=== PATIENT | female | born 1985 | race Caucasian/White ===

== ENCOUNTER 2018-01-09 05:46 | Inpatient (IN) | payer OTHER, BC ==
[2017-12-22 12:01] VITALS: BMI 42.0
--- NOTE | 2017-12-22 12:34 | PAT Medication Instructions ---
Service Date Dec 22, 2017. Current Home Medication List Ibuprofen (Motrin), 800 MG PO TIDM PRN for Pain Medication Instructions For Your Scheduled Surgery - Hold the following medications 7 days prior to surgery per your surgeon's instructions: Ibuprofen (Motrin), 800 MG PO TIDM PRN for Pain If you have any questions please call us at [phone] or [phone] or [phone]
[2017-12-22 13:15] LABS: BASO % 0.2 %; BASO ABS # 0.02 K/uL (0-0.2); EOS % 1.1 %; EOS ABS # 0.09 K/uL (0-0.5); HEMATOCRIT 38.4 % (37-47); HEMOGLOBIN 13.5 g/dL (12.0-16.0); IG# 0.02 K/uL (0.00-0.02); LYMPH % 33.7 %; LYMPH ABS # 2.71 K/uL (1.2-3.4); MEAN CELL VOLUME 91.4 fL (80-100); MEAN CORPUSCULAR HEMOGLOBIN 32.1 pg (25-34); MEAN CORPUSCULAR HGB CONC 35.2 g/dl (32-36); MEAN PLATELET VOLUME 9.8 fL (7.4-10.4); MONO % 5.1 %; MONO ABS # 0.41 K/uL (0.11-0.59); NEUT % 59.7 %; NEUT ABS # 4.79 K/uL (1.4-6.5); PLATELET COUNT 315 K/uL (130-400); RED CELL DISTRIBUTION WIDTH CV 12.2 % (11.5-14.5); RED CELL DISTRIBUTION WIDTH SD 40.6 fL (36.4-46.3); WHITE BLOOD COUNT 8.04 K/uL (4.8-10.8)
--- NOTE | 2017-12-22 13:20 | DIAGNOSTIC IMAGING REPORT ---
CHEST 2 VIEWS ROUTINE CLINICAL HISTORY: Preoperative chest COMPARISON STUDY: No previous studies for comparison. FINDINGS: The cardiac and mediastinal contours are normal. There is no evidence of focal pulmonary consolidation. There is no evidence of failure. No pleural effusions are visualized.[ IMPRESSION: No active disease in the chest. Electronically signed by: Cosmo Gutierrez M.D. 12/22/2017 1:19 PM Dictated Date/Time: 12/22/2017 1:18 PM
[2018-01-09] VITALS (17 sets, daily range): BP systolic 114–145; BP diastolic 69–91; PULSE 78–118; TEMP 36.4–37.2; O2SAT 95–98; Ht 157.5 cm; Wt 104.8 kg
[~2018-01-09] VITALS: Ht 157.5 cm; Wt 104.8 kg
[~2018-01-09 05:46] MED LIST: IBUP-1428 PO
[2018-01-09] MEDS ORDERED: CLINDAMYCIN PHOS 150 MG/ML 2 ML VIAL IV SCH (06:00)
[2018-01-09] MEDS ORDERED: LACTATED RINGER'S 1000ML 1,000 ML IV SCH (06:00)
[2018-01-09] MEDS ORDERED: FENTANYL CITRATE INJ 50 MCG/1 ML 2 ML VIAL ONE ×2 (06:39→07:59)
[2018-01-09] MEDS ORDERED: MIDAZOLAM HCL 1 MG/ML 2ML VIAL ONE (06:39)
[2018-01-09] MEDS ORDERED: SODIUM CHLORIDE 0.9% PF 50 ML VIAL ONE (07:02)
[2018-01-09] MEDS ORDERED: BACITRACIN 50000 UNIT VIAL ONE (07:02)
--- NOTE | 2018-01-09 07:24 | History & Physical Bridge Note ---
H&P Re-Evaluation Bridge Note: I have examined the patient, reviewed the History & Physical and in the interval since the performance of the History & Physical I have noted the following changes of clinical significance: No changes noted
--- NOTE | 2018-01-09 07:25 | History and Physical ---
History & Physical Date Jan 09, 2018. Chief Complaint Neck and arm pain History of Present Illness The patient is a 32 year old female with complaints of neck and arm pain Additional History Hepatic Disease: No Endocrine Disorder: No Kidney Disease: No Hypertension: No Heart Disease: No Bleeding Tendencies: No Infectious Diseases: No Allergies Coded Allergies: Doxycycline (Verified Allergy, Unknown, INCREASED HEART RATE, 12/22/17) Meloxicam (Verified Allergy, Unknown, HIVES, 12/22/17) Uncoded Allergies: PENICILLIN (Allergy, Unknown, HIVES, 12/22/17) Home Medications Scheduled PRN Ibuprofen (Motrin), 800 MG PO TIDM PRN for Pain Physical Examination Skin: warm/dry, no rash Eyes: normal inspection, EOMI, sclerae normal ENT: normal ENT inspection, pharynx normal Head: normocephalic, atraumatic Neck: supple, no adenopathy, trachea midline Respiratory/Chest: lungs clear, normal breath sounds, no respiratory distress Cardiovascular: regular rate, rhythm, no edema, no murmur Abdomen / GI: normal bowel sounds, non tender Back: normal inspection Extremities: normal inspection, normal range of motion Neurologic/Psych: no motor/sensory deficits, alert, normal reflexes, oriented x 3 Diagnosis Cervical spinal stenosis Plan of Treatment ACDF C5-7
[2018-01-09] MEDS ORDERED: HYDROmorphone INJ 2 MG/ML SYR/VIAL ONE ×2 (07:59→08:56)
[2018-01-09] MEDS ORDERED: SCOPOLAMINE 1.5 MG TDSY TD ONE (08:11)
[2018-01-09] MEDS ORDERED: LIDOCAINE HCL 2% 2 ML VIAL (20MG/ML) ONE (08:23)
[2018-01-09] MEDS ORDERED: ONDANSETRON INJ 2 MG/ML 2 ML VIAL ONE ×2 (08:23→08:59)
[2018-01-09] MEDS ORDERED: DEXAMETHASONE SOD INJ 4 MG/ML VIAL ONE (08:23)
[2018-01-09] MEDS ORDERED: METOCLOPRAMIDE HCL INJ 5 MG/ML 2 ML VIAL ONE ×2 (08:23→08:59)
[2018-01-09] MEDS ORDERED: PROPOFOL IV EMULSION 10 MG/ML 20 ML VIAL IV ONE (08:23)
[2018-01-09] MEDS ORDERED: RANITIDINE HCL 25 MG/ML INJ ONE ×2 (08:23→08:59)
[2018-01-09] MEDS ORDERED: EpHEDrine SULFATE INJ 50 MG/ML AMP IV PRN (08:30)
[2018-01-09] MEDS ORDERED: ATROPINE SULFATE 0.1 MG/ML 5ML SYR IV PRN (08:30)
[2018-01-09] MEDS ORDERED: HYDROmorphone INJ 0.5 MG/0.5 ML SYR IV PRN ×2 (08:30→09:15)
[2018-01-09] MEDS ORDERED: SCOPOLAMINE 1.5 MG TDSY TD SCH (08:30)
[2018-01-09] MEDS ORDERED: PROMETHAZINE HCL INJ 12.5 MG in SODIUM CHLORIDE 0.9% 50ML 50 ML IV PRN (08:30)
[2018-01-09] MEDS ORDERED: ONDANSETRON INJ 2 MG/ML 2 ML VIAL IV PRN ×2 (08:30→09:15)
[2018-01-09] MEDS ORDERED: FLOSEAL HEMOSTATIC MATRIX 10ML TOP ONE (08:52)
[2018-01-09] MEDS ORDERED: NEOSTIGMINE METHYLSULFATE 1 MG/ML 10ML VIAL ONE (08:59)
[2018-01-09] MEDS ORDERED: GLYCOPYRROLATE INJ 0.2 MG/ML VIAL ONE (08:59)
[2018-01-09] MEDS ORDERED: ESMOLOL HCL 10 MG/ML 10 ML VIAL ONE (08:59)
[2018-01-09] MEDS ORDERED: METOPROLOL TARTRATE 1 MG/ML VIAL ONE (09:01)
--- NOTE | 2018-01-09 09:03 | [facility] Operative Report ---
Operative Report Operative Date Jan 09, 2018. Pre-Operative Diagnosis Cervical Spinal Stenosis Post-Operative Diagnosis Cervical Spinal Stenosis Procedure(s) Performed 1. Anterior cervical discectomy bilateral foraminotomies C5-6 C6-7. #2 anterior cervical arthrodesis C5-6 C6-7. #3 placement of cortical allograft 8 mm in height filled with DBM at C5-6 and C6-7. #4 application of felt complete and screws C5-6 C6-[address] Surgeon Dr. Pedraza Plate Painter Surgeon(s) Ann Perez PA-C Estimated Blood Loss 10ml Findings Herniated disc pulposus Specimens None per surgeon Anesthesia Type General Description of Procedure Patient was met with preoperatively case discussed all questions addressed. After informed consent obtained patient was taken to the operative suite underwent intubation and placed in supine position on the Joshua table with head Irving branham. All bony prominences were well-padded eyes inspected to ensure no external pressure placed upon them. This point the anterior cervical spine was prepped and draped in normal sterile fashion. The assistance of fluoroscopy verified the C6 vertebral body and transverse incision was placed along the right anterior aspect of the cervical spine overlying this region. Sharp dissection with the assistance of bipolar electrocautery was performed down to and exposing the anterior cervical spine from C5-C7. I verified my position with fluoroscopy. A self retaining retractor was placed. Then performed a complete discectomy of C5-6 up to the uncovertebral joints bilaterally including removal of all posterior annular fibers longitudinal ligament bilateral foraminotomies. Identified significant portions of herniated disc. After this is complete and plates were burred to subcortical bleeding bone and an 8 mm millimeter cortical allograft filled DBM was tapped into position. Distracting apparatus was removed and I proceeded to C6-7. Again a complete discectomy was performed up to the uncovertebral joints bilaterally [place] distracting pins again utilized to assist in visualization. I removed all posterior annular fibers longitudinal ligament removed all disc herniation to decompress the canal and bilateral foraminal. Endplates were then burred to subcortical bleeding bone and a 8 mm cortical allograft with DBM tapped in position. Distraction apparatus was removed anterior aspect burred to a smooth cortical surface and a hood plate and screws applied with the assistance of fluoroscopy. Incision was then copiously irrigated explored to ensure there is no damage to surrounding structures. A 10 round [place] drain inserted. The incision was then closed with 2 Vicryl in a fashion of 4-0 Monocryl for final skin closure Steri-Strips sterile dressings placed. Patient weakened the PACU stable condition. Please note Ann Winston was present throughout the entire procedure involved in patient positioning complex portions of the surgery and fashion closure. I attest to the content of the Intraoperative Record and any orders documented therein. Any exceptions are noted below.
[2018-01-09] MEDS ORDERED: RACEPINEPHRINE 2.25% NEBU SOLN 0.5 ML VIAL INH PRN (09:15)
[2018-01-09] MEDS ORDERED: DO NOT ADMINISTER FLU VACCINE PRN (09:15)
[2018-01-09] MEDS ORDERED: NALOXONE HCL 0.4 MG/1 ML VIAL/CARP IV PRN (09:15)
[2018-01-09] MEDS ORDERED: DiphenhydrAMINE HCL 50 MG/ML VIAL IV PRN (09:15)
[2018-01-09] MEDS ORDERED: DEXAMETHASONE INJ 8 MG in SYRINGE 0 ML IV PRN (09:15)
[2018-01-09] MEDS ORDERED: LORAZEPAM 0.5 MG TAB PO PRN (09:15)
[2018-01-09] MEDS ORDERED: LORAZEPAM INJ 0.5 MG in SYRINGE 0.75 ML IV PRN (09:15)
[2018-01-09] MEDS ORDERED: MAGNESIUM HYDROXIDE SUSP 30 ML UDC PO PRN (09:15)
[2018-01-09] MEDS ORDERED: ACETAMINOPHEN IV 1,000 MG in EMPTY BAG 0 ML IV PRN (09:15)
[2018-01-09] MEDS ORDERED: DO NOT ADMINISTER PNEUMOCOCCAL VACCINE PRN (09:15)
[2018-01-09] MEDS ORDERED: HYDROmorphone INJ 1 MG/ML SYR ONE (09:22)
[2018-01-09] MEDS: FENTANYL CITRATE INJ 50 MCG/1 ML 2 ML VIAL IV PRN ×4 (09:24→09:45)
--- NOTE | 2018-01-09 09:31 | DIAGNOSTIC IMAGING REPORT ---
CERVICAL 2 OR 3 VIEWS CLINICAL HISTORY: ACDF C5-7 COMPARISON STUDY: No previous studies for comparison. Fluoroscopy time: 14.5 seconds. FINDINGS: 3 fluoroscopic images demonstrate C5-C7 anterior discectomy and fusion. Hardware appears intact. Surgical drain is in place. Endotracheal and nasogastric tubes are partially imaged. IMPRESSION: Fluoroscopic images demonstrating a C5-C7 anterior discectomy and fusion. Electronically signed by: Alvaro Oquendo M.D. 01/09/2018 9:30 AM Dictated Date/Time: 01/09/2018 9:29 AM
[2018-01-09] MEDS ORDERED: NURSING VERBAL MED ORDER ONE (09:45)
--- NOTE | 2018-01-09 10:00 | Anesthesiology Progress Note ---
Anesthesia Post Op Note Date & Time Jan 09, 2018 at 09:59 Vital Signs Pain Intensity: 4 Vital Signs Past 12 Hours Date Time Temp Pulse Resp B/P (MAP) Pulse Ox O2 Delivery O2 Flow Rate FiO2 01/09/18 09:50 67 15 136/83 96 Nasal Cannula 2 01/09/18 09:40 65 14 123/81 97 Nasal Cannula 2 01/09/18 09:30 61 12 128/85 100 Oxymask 10 01/09/18 09:20 80 14 135/92 100 Oxymask 10 01/09/18 09:11 36.0 74 16 123/77 98 Oxymask 10 01/09/18 06:11 36.7 106 20 136/91 97 Room Air Notes Mental Status: alert / awake / arousable, participated in evaluation Pt Amnestic to Procedure: Yes Nausea / Vomiting: adequately controlled Pain: adequately controlled Airway Patency, RR, SpO2: stable & adequate BP & HR: stable & adequate Hydration State: stable & adequate Anesthetic Complications: no major complications apparent
[2018-01-09] MEDS ORDERED: ROCURONIUM BROMIDE 10 MG/ML 5 ML VIAL IV ONE (10:54)
[2018-01-09] MEDS ORDERED: RXC5 PO (11:39)
--- NOTE | 2018-01-09 11:40 | Discharge Instructions ---
Discharge Instructions Date of Service Jan 09, 2018. Admission Reason for Admission: Cervical Spinal Stenosis Discharge Discharge Diagnosis / Problem: cervical stenosis Discharge Goals Goal(s): Improve function Activity Recommendations Activity Limitations: per Instructions/Follow-up section . Instructions / Follow-Up Instructions / Follow-Up ACTIVITY RECOMMENDATIONS: SELF CARE INSTRUCTIONS AFTER CERVICAL FUSIONS 1. No smoking. Smoking drastically decreases the chance of a solid fusion. 2. No bending, lifting more than 5 pounds, or twisting (roll like a log when turning in bed). 3. You may shower 3 days after surgery. Thoroughly dry wound. Do not soak in the tub. 4. Cervical collar: Must be worn at all times including sleeping. You may remove the brace only to bath, eat and if you are sitting in a recliner. 5. Please walk as much as you can for exercise. Gradually increase the distance that you walk as your endurance increases. SPECIAL CARE INSTRUCTIONS: VERY IMPORTANT TO READ AND REVIEW A. Do not take any anti-inflammatory medications (i.e. Indocin, Advil, Aspirin, Naprosyn, Aleve, Motrin, etc.) as these may inhibit the chance of a solid fusion. Tylenol is okay to take. B. Your surgical incision has been closed with a cosmetic suture under the skin that will dissolve in about 6 weeks. In 14 days, you can use a pair of clean scissors and cut the suture that is left outside of the skin at the ends of your incision. C. Complications are uncommon, but please contact us if you have any signs or symptoms of: 1. wound infection (fever higher than 102.5 degrees F, redness, separation of wound, drainage, or increasing pain from the incision) 2. blood clots in legs (pain, swelling, redness and warmth in legs) 3. urinary tract infection (fever higher than 102.5 degrees, burning upon urination or increased frequency of urination) 4. nerve problems (inability to walk on your toes or heels, numbness, loss of bowel or bladder control) 5. any other symptoms that concern you. D. Please call the office at if you have any concerns or questions about your operation or recovery. MANAGING PAIN AFTER SPINAL SURGERY 1. Narcotic medication is intended for short-term use and will be provided for surgical pain. Surgical pain usually lasts for a period of 4-6 weeks. Narcotic medication includes Percocet, Vicodin, Darvocet, Tylenol #3 or Lortab. 2. Longer-term pain is more appropriately treated with non-narcotic medication such as Tylenol ES. 3. Muscle spasm is not appropriately treated with narcotics. Muscle relaxers such as Soma, Flexeril or Skelaxin can be used along with Tylenol ES. 4. Remember that we all live with some "aches and pains". This is not unusual or uncommon after an injury or as we get older. 5. We will provide appropriate medication within the normal guidelines of their prescribed use. We will also be very cautious and aware of potential abuse and extended duration of patients' medication needs. 6. Please allow 2-3 days to process refills. Prescriptions will not be mailed but must be picked up at the office. FOLLOW UP VISIT: Keep your scheduled follow-up appointment. Any questions, please call the office at . Current Hospital Diet Patient's current hospital diet: Clear Liquid Diet Discharge Diet Recommended Diet: Regular Diet Procedures Procedures Performed: 1. Anterior cervical discectomy bilateral foraminotomies C5-6 C6-7. #2 anterior cervical arthrodesis C5-6 C6-7. #3 placement of cortical allograft 8 mm in height filled with DBM at C5-6 and C6-7. #4 application of felt complete and screws C5-6 C6-7. Pending Studies Studies pending at discharge: no Medical Emergencies . Who to Call and When: Medical Emergencies: If at any time you feel your situation is an emergency, please call 911 immediately. . Non-Emergent Contact Non-Emergency issues call your: Primary Care Provider . "Provider Documentation" section prepared by Alpesh Pedraza. .
[2018-01-09] MEDS: SODIUM CHLORIDE 0.9% 1000ML 1,000 ML IV SCH ×2 (14:43→21:39)
[2018-01-09] MEDS: CHECK SCOPOLAMINE PATCH PLACEMENT SCH ×2 (15:44→23:46)
[2018-01-09] MEDS: ACETAMINOPHEN IV 100 ML IV PRN (15:55)
[2018-01-09] MEDS: CLINDAMYCIN IV 600 MG in DEXTROSE 5% 50ML 50 ML IV SCH (18:45)
[2018-01-09] MEDS: OXYCODONE HCL IR 5 MG TAB (IMMEDIATE RELEASE) PO PRN (19:52)
[2018-01-09] MEDS: DOCUSATE SODIUM 100 MG CAP PO SCH (21:40)
[2018-01-10] VITALS (9 sets, daily range): BP systolic 103–127; BP diastolic 66–81; PULSE 73–102; TEMP 36.6–36.9; O2SAT 96–100
[2018-01-10] MEDS: ACETAMINOPHEN IV 100 ML IV PRN (00:01)
[2018-01-10] MEDS: SODIUM CHLORIDE 0.9% 1000ML 1,000 ML IV SCH (00:43)
[2018-01-10] MEDS: CLINDAMYCIN IV 600 MG in DEXTROSE 5% 50ML 50 ML IV SCH ×2 (01:42→10:00)
[2018-01-10] MEDS: CHECK SCOPOLAMINE PATCH PLACEMENT SCH (07:44)
[2018-01-10] MEDS: DOCUSATE SODIUM 100 MG CAP PO SCH (10:00)
[2018-01-10] MEDS: OXYCODONE HCL IR 5 MG TAB (IMMEDIATE RELEASE) PO PRN (12:02)
--- NOTE | 2018-01-10 12:18 | Discharge Summary ---
Orthopedic Discharge Summary Admission Date/Reason Jan 09, 2018 at 07:30 Cervical Spinal Stenosis. Discharge Date/Disposition Jan 10, 2018 Home Diagnosis Principal Diagnosis: Cervical spinal stenosis Admission Physical Exam As per Admitting History & Physical. Hospital Course Patient underwent anterior cervical discectomy and fusion tolerated this well was taken to the orthopedic floor postoperatively. Postop day #1 she was swallowing well arm symptoms improved no hoarseness [place] drain decreased appropriately subsequently discharged home. Discharge orders and instructions found in the chart for further review. Discharge Instructions Please refer to the electronic Patient Visit Report (Discharge Instructions) for additional information.
--- NOTE | 2018-01-10 13:28 | Anesthesiology Progress Note ---
Anesthesia Post Op Note Date & Time Jan 10, 2018 at 13:26 Vital Signs Vital Signs Past 12 Hours Date Time Temp Pulse Resp B/P (MAP) Pulse Ox O2 Delivery O2 Flow Rate FiO2 01/10/18 12:14 36.7 78 14 98 Room Air 01/10/18 11:24 78 14 98 Room Air 01/10/18 10:34 36.7 79 18 108/69 (82) 96 Nasal Cannula 4.0 Humidified Oxygen 01/10/18 09:58 36.8 83 14 127/81 96 Room Air 01/10/18 07:39 86 14 100 Nasal Cannula 2.0 01/10/18 07:30 Nasal Cannula 2.0 01/10/18 06:50 36.6 95 18 113/75 (88) 99 Nasal Cannula 4.0 Humidified Oxygen 01/10/18 03:30 36.6 73 14 103/66 98 Nasal Cannula 2.0 01/10/18 03:19 102 16 98 Nasal Cannula 2.0 01/10/18 01:30 36.9 85 16 108/68 97 Nasal Cannula 2.0 Notes Mental Status: alert / awake / arousable, participated in evaluation Pt Amnestic to Procedure: Yes Nausea / Vomiting: adequately controlled Pain: adequately controlled Airway Patency, RR, SpO2: stable & adequate BP & HR: stable & adequate Hydration State: stable & adequate Anesthetic Complications: no major complications apparent
[2018-01-11] MEDS ORDERED: BISACODYL 10 MG SUPP PR PRN (06:00)
[2018-01-11] MEDS ORDERED: BISACODYL 5 MG TABEC PO PRN (06:00)
[2018-01-11] MEDS ORDERED: POLYETHYLENE (MIRALAX) 17 GM PACK PO SCH (09:00)
[2018-01-12] MEDS ORDERED: SCOPOLAMINE 1.5 MG TDSY TD SCH (09:15)
[2018-01-12] MEDS ORDERED: CHECK SCOPOLAMINE PATCH PLACEMENT SCH (16:00)
== END 2018-01-10 12:47 | disposition home or self-care (01) | DRG 473 ==
LOC: C.ACU 05:46 → C.3E 07:30 → ENRESERV 10:01
PROVIDERS: ADMIT Orthopaedic Surgery Orthopaedic Surgery of the Spine; ATTEND Orthopaedic Surgery Orthopaedic Surgery of the Spine
PROC: 0RG20K0 Fusion of 2 or more Cervical Vertebral Joints with Nonautologous Tissue Substitute, Anterior Approach, Anterior Column, Open Approach (ICD-10-PCS; principal; 2018-01-09 07:45)
PROC: 0RT30ZZ Resection of Cervical Vertebral Disc, Open Approach (ICD-10-PCS; principal; 2018-01-09 07:45)
DX: M48.02 Spinal stenosis, cervical region (principal); Z88.1 Allergy status to other antibiotic agents